=== PATIENT | female | born 1960 | race Caucasian/White ===

== ENCOUNTER 2023-07-30 22:42 | Emergency (ER) | payer MEDICARE ==
[2023-07-31 00:07] LABS: INR-International Normal Ratio 1.5; PTT 56.6 sec (22.0-33.0); Prothrombin Time 16.3 sec (9.5-12.1)
[2023-07-31 00:18] LABS: CK (CPK) 128 U/L (29-168); Magnesium 1.8 mg/dL (1.6-2.6)
[2023-07-31 00:23] LABS: Lipase Less than 4 U/L (8-78)
[2023-07-31 00:28] LABS: Bilirubin Neg (Negative); Blood, Urine 250 (Negative); Glucose, Urine (Dipstick) Normal (Negative); Ketone, Urine Negative (Negative); Leukocyte 500 (Negative); Nitrite Negative (Negative); Protein, Urine (Dipstick) 500 mg/dl (Neg-Trace); Urobilinogen Normal mg/dL (Less than 2)
[2023-07-31 00:44] LABS: Clarity Opaque (Clear)
[2023-07-31 00:47] LABS: CAUTI Indications for Culture Pelvic or flank pain; WBC/HPF Greater than 50 HPF (0-3)
[2023-07-31 00:48] LABS: RBC/HPF Greater than 50 HPF (0-3)
[2023-07-31 00:50] LABS: Bacteria/HPF 4+ HPF (None Seen); Renal Epithelial 0-3 HPF (None Seen); Transitional Epithelial 0-3 HPF (None Seen)
[2023-07-31 00:52] LABS: Urine Culture Reflex Yes Yes
[2023-07-31] MEDS ORDERED: Cefepime 2 GM VIAL ONE (00:59)
[2023-07-31 03:33] LABS: Hematocrit 18.3 % (34.9-44.5); Hemoglobin 5.4 g/dL (12.0-15.5); Mean Corpuscular HGB CONC 29.5 g/dL (32.0-36.0); Mean Corpuscular Hemoglobin 31.4 pg (27.0-33.0); Mean Corpuscular Volume 106.4 fl (81.6-98.3); Platelet Count 124 10x3/uL (150-450); RBC Distribution Width 16.7 % (11.5-14.5); Red Blood Cell (RBC) Count 1.72 10x6/uL (3.90-5.03); White Blood Cell (WBC) Count 5.3 10x3/uL (3.5-10.5)
[2023-07-31 03:34] LABS: Critical Call w/ Read Back ERS.EG @ 0332; Mean Platelet Volume 10.3 fl (7.4-10.4)
[2023-07-31 03:35] LABS: MDiff Complete? YES
[2023-07-31] MEDS ORDERED: HUM PROTHROMBIN CPLX(PCC)4FACT 2,000 UNITS in Admixture Fee 1 EACH IV SCH (04:45)
[2023-07-31 05:16] LABS: Band 13 % (5-11); Eosinophils 2 % (0-10); Lymphocytes 33 % (21-51); Monocytes 18 % (0-10); Neutrophil 33 % (42-75); Reactive Lymphocytes 1 % (0-10)
[2023-07-31 05:25] LABS: Anisocytosis SLIGHT = 6-15 cells (100X) (0-5/hpf); Hypochromia SLIGHT = 6-15 cells (100X) (0-5/hpf); Macrocytosis SLIGHT = 6-15 cells (100X) (0-5/hpf); Microcytosis SLIGHT = 6-15 cells (100X) (0-5/hpf); Polychromasia SLIGHT = 2-3 cells (100X) (0-2/hpf)
[2023-07-31 05:27] LABS: Platelet Adequacy Comment Appears Decreased
[2023-07-31] MEDS ORDERED: Iopamidol 300 61% 100 ML VIAL FS ONE (10:08)
== END 2023-07-31 05:51 | disposition short-term general hospital (02) ==
LOC: CSHERS 22:42
DX: D64.9 Anemia, unspecified (principal); R22.42 Localized swelling, mass and lump, left lower limb; N39.0 Urinary tract infection, site not specified; M79.81 Nontraumatic hematoma of soft tissue; I13.2 Hypertensive heart and chronic kidney disease with heart failure and with stage 5 chronic kidney disease, or end stage renal disease; N18.5 Chronic kidney disease, stage 5; I50.9 Heart failure, unspecified; E03.9 Hypothyroidism, unspecified; K21.9 Gastro-esophageal reflux disease without esophagitis; E78.00 Pure hypercholesterolemia, unspecified; Z79.82 Long term (current) use of aspirin; Z79.01 Long term (current) use of anticoagulants
CPT/HCPCS: 36415; 36430; 74176; 81001; 82550; 83605; 83690; 83735; 84484; 85025; 85610; 85730; 86850; 86900; 86901; 87086; 93005; J0692; J7168; P9016